=== PATIENT | male | born 1980 | race Two or more races ===

== ENCOUNTER 2023-09-09 06:04 | Day surgery (SDC) | payer OTHER ==
[~2023-09-09] VITALS: Ht 165.1 cm; Wt 72.6 kg
[2023-09-09] MEDS ORDERED: METRONIDAZOLE/SODIUM CHLORIDE 500 MG/100 ML PIGGYBACK IV ONE ×2 (06:44→08:00)
[2023-09-09] MEDS ORDERED: CEFTRIAXONE SODIUM 2,000 MG VIAL ONE (06:45)
[2023-09-09] MEDS ORDERED: DIBUCAINE 30 GM TUBE ONE (07:26)
[2023-09-09] MEDS ORDERED: LIDOCAINE HCL 1%/Epi 20ML VIAL IJ ONE ×2 (07:26→08:15)
[2023-09-09] MEDS ORDERED: POVIDONE-IODINE 118 ML BOTT TOP ONE ×2 (07:27→08:00)
[2023-09-09] MEDS ORDERED: BUPIVACAINE HCL 250MG/50ML VIAL ONE (07:27)
[2023-09-09] MEDS ORDERED: HEMOSTATIC MATRIX 1 KIT KIT TOP ONE ×2 (07:28→08:00)
[2023-09-09] MEDS ORDERED: CEFTRIAXONE SODIUM 2,000 MG VIAL IV ONE (08:00)
[2023-09-09] MEDS ORDERED: DIBUCAINE 30 GM TUBE RECTAL ONE (08:15)
[2023-09-09] MEDS ORDERED: BUPIVACAINE HCL 250MG/50ML VIAL IJ ONE (08:15)
[2023-09-09] MEDS ORDERED: TAMSULOSIN HCL 0.4 MG CAP PO STA (08:51)
[2023-09-09] MEDS ORDERED: RECTICARE30 GM TOP (08:53)
[2023-09-09] MEDS ORDERED: PERCOCET 5-3251 EACH PO (08:53)
[2023-09-09] MEDS ORDERED: TAMSULOSIN HCL 0.4 MG CAP PO ONE (10:18)
== END 2023-09-09 13:00 | disposition home or self-care (01) ==
LOC: CIR.AMB 06:04
PROVIDERS: ATTEND Surgery
DX: K62.5 Hemorrhage of anus and rectum (principal); K60.2 Anal fissure, unspecified; K64.8 Other hemorrhoids; Z20.822 Contact with and (suspected) exposure to COVID-19